=== PATIENT | male | born 1965 | race Hispanic/Latino ===

== ENCOUNTER 2024-01-06 15:19 | Emergency (ER) | payer MEDICAID, OTHER ==
[~2024-01-06] VITALS: Ht 172.7 cm; Wt 70.8 kg
[2024-01-06 16:12] LABS: BASOPHILS # (AUTO) 0.04 K/uL (0.00-0.20); BASOPHILS % (AUTO) 0.5 % (0.0-5.0); EOSINOPHILS % (AUTO) 2.5 % (0.0-8.0); HEMATOCRIT 47.4 % (42-54); IMMATURE GRANULOCYTE ABSOLUTE 0.03 K/uL (0-1); LYMPHOCYTES # (AUTO) 2.4 K/uL (1.0-4.8); LYMPHOCYTES % (AUTO) 29.1 % (21.0-51.0); MEAN CORPUSCULAR HEMOGLOBIN 29.2 pg (27.0-33.0); MEAN CORPUSCULAR VOLUME 85.9 fL (79-99); MONOCYTES # (AUTO) 0.7 K/uL (0.1-1.0); NEUTROPHILS # (AUTO) 4.8 K/uL (1.8-7.7); NEUTROPHILS % (AUTO) 59.5 % (40.0-77.0); PLATELET COUNT (AUTO) 239 K/uL (130-400); RED BLOOD CELL COUNT(AUTO) 5.52 MIL/uL (4.50-6.20); WHITE BLOOD COUNT (AUTO) 8.1 K/uL (4.8-10.8)
[2024-01-06 16:16] LABS: POTASSIUM 3.9 mmol/L (3.5-5.1)
[2024-01-06 16:20] LABS: ALBUMIN 3.7 g/dL (3.5-5.0); BILIRUBIN,TOTAL 0.7 mg/dL (0.2-1.0); TOTAL PROTEIN, SERUM 7.7 g/dL (6.0-8.3)
[2024-01-06 16:26] LABS: APPEARANCE,URINE CLEAR (CLEAR); BILIRUBIN,URINE NEGATIVE (NEGATIVE); COLOR,URINE COLORLESS (YELLOW); GLUCOSE, URINE (UA) 50 mg/dL (NEGATIVE); KETONES,URINE NEGATIVE (NEGATIVE); LEUKOCYTE ESTERASE ,URINE NEGATIVE Leu/uL (NEGATIVE); NITRATE,URINE NEGATIVE (NEGATIVE); OCCULT BLOOD,URINE NEGATIVE (NEGATIVE); PROTEIN,URINE NEGATIVE (NEGATIVE); UROBILINOGEN,URINE 0.2 mg/dL (0.2-1.0)
[2024-01-06 16:28] LABS: ADD UA MICROSCOPIC YES; RBC,URINE 0-1 /HPF (0-1); WBC,URINE 0-1 /HPF (0-1)
[2024-01-06] MEDS ORDERED: IOHEXOL 350 MG/ML 100ML INFUS..BTL IV ONE (16:52)
[2024-01-06] MEDS ORDERED: TAMS-1 PO (18:02)
[2024-01-06] MEDS: LACTATED RINGERS 1000ML 1,000 ML IV ONE (18:14)
[2024-01-06] MEDS: ONDANSETRON 4MG INJ IVP ONE (18:14)
[2024-01-06] MEDS: FAMOTIDINE 20MG VIAL IV ONE (18:14)
[2024-01-06 19:25] VITALS: BP 141/86; PULSE 77; RESP 14; O2SAT 96
[2024-01-07] MEDS ORDERED: TAMS-1 PO (00:15)
[2024-01-07] MEDS ORDERED: LEVO-70 PO (00:15)
== END 2024-01-06 19:30 | disposition home or self-care (01) ==
LOC: EDH 15:19
DX: N13.9 Obstructive and reflux uropathy, unspecified (principal); R33.9 Retention of urine, unspecified; F20.9 Schizophrenia, unspecified; F32.A Depression, unspecified; R11.2 Nausea with vomiting, unspecified; R14.0 Abdominal distension (gaseous)
CPT/HCPCS: 99285; 74177; 96374; 96361; 96375; 80053; 83690; 85025; 81001; 36415; J7120; J2405; Q9967; S0028; J3490

== ENCOUNTER 2024-01-06 21:10 | Emergency (ER) | payer MEDICAID ==
[~2024-01-06] VITALS: Ht 162.6 cm; Wt 69.9 kg
[~2024-01-06 21:10] MED LIST: TAMS-1 PO
[2024-01-06 22:41] LABS: BASOPHILS # (AUTO) 0.05 K/uL (0.00-0.20); BASOPHILS % (AUTO) 0.5 % (0.0-5.0); EOSINOPHILS # (AUTO) 0.12 K/uL (0.00-0.70); EOSINOPHILS % (AUTO) 1.1 % (0.0-8.0); HEMATOCRIT 47.8 % (42-54); IMMATURE GRANULOCYTE ABSOLUTE 0.04 K/uL (0-1); LYMPHOCYTES # (AUTO) 1.4 K/uL (1.0-4.8); LYMPHOCYTES % (AUTO) 12.6 % (21.0-51.0); MEAN CORPUSCULAR HEMOGLOBIN 29.9 pg (27.0-33.0); MEAN CORPUSCULAR HGB CONC 34.5 g/dL (32.0-36.0); MEAN CORPUSCULAR VOLUME 86.6 fL (79-99); MONOCYTES # (AUTO) 0.7 K/uL (0.1-1.0); MONOCYTES % (AUTO) 6.1 % (3.0-13.0); NEUTROPHILS # (AUTO) 8.7 K/uL (1.8-7.7); NEUTROPHILS % (AUTO) 79.3 % (40.0-77.0); PLATELET COUNT (AUTO) 225 K/uL (130-400); RED BLOOD CELL COUNT(AUTO) 5.52 MIL/uL (4.50-6.20); RED CELL DISTRIBUTION WIDTH 13.1 % (11.0-15.5)
[2024-01-06 22:49] LABS: CREATININE 1.1 mg/dL (0.5-1.3); POTASSIUM 4.1 mmol/L (3.5-5.1)
[2024-01-06 22:51] LABS: INR 0.98 (0.85-1.15); PROTHROMBIN TIME 10.6 SEC (9.6-11.6)
[2024-01-06 22:52] LABS: PARTIAL THROMBOPLASTIN TIME 27.1 SEC (26.3-35.5)
[2024-01-06 22:54] LABS: ALBUMIN 3.6 g/dL (3.5-5.0); BILIRUBIN,TOTAL 0.7 mg/dL (0.2-1.0); TOTAL PROTEIN, SERUM 7.3 g/dL (6.0-8.3)
[2024-01-06 22:57] LABS: APPEARANCE,URINE TURBID (CLEAR); BILIRUBIN,URINE NEGATIVE (NEGATIVE); COLOR,URINE DARK-BROWN (YELLOW); GLUCOSE, URINE (UA) 300 mg/dL (NEGATIVE); KETONES,URINE NEGATIVE (NEGATIVE); LEUKOCYTE ESTERASE ,URINE 25 Leu/uL (NEGATIVE); NITRATE,URINE NEGATIVE (NEGATIVE); OCCULT BLOOD,URINE LARGE (NEGATIVE); PROTEIN,URINE 300 mg/dL (NEGATIVE); UROBILINOGEN,URINE 0.2 mg/dL (0.2-1.0)
[2024-01-06 22:58] LABS: ADD UA MICROSCOPIC YES
[2024-01-06 23:00] LABS: BACTERIA,URINE FEW /HPF (None Seen); RBC,URINE TNTC /HPF (0-1)
[2024-01-06] MEDS: FUROSEMIDE 40 MG TABLET ONE (23:38)
[2024-01-06] MEDS: FUROSEMIDE 40MG VIAL ONE (23:38)
[2024-01-06] MEDS: FUROSEMIDE 40 MG TABLET PO ONE (23:39)
[2024-01-06 23:42] VITALS: BP 128/62; PULSE 68; RESP 20; O2SAT 95
[2024-01-07] MEDS ORDERED: LEVO-70 PO (00:15)
[2024-01-07] MEDS ORDERED: TAMS-1 PO (00:15)
[2024-01-07] MEDS ORDERED: LEVOFLOXACIN 500 MG TABLET PO SCH (00:30)
== END 2024-01-07 00:24 | disposition home or self-care (01) ==
LOC: EDH 21:10
DX: R39.0 Extravasation of urine (principal); N40.0 Benign prostatic hyperplasia without lower urinary tract symptoms; F20.9 Schizophrenia, unspecified; F32.A Depression, unspecified; Z96.0 Presence of urogenital implants; Z79.01 Long term (current) use of anticoagulants
CPT/HCPCS: 36415; 80053; 81001; 83605; 85025; 85610; 85730; 87040; J1940

== ENCOUNTER 2024-01-08 16:36 | Emergency (ER) | payer MEDICAID ==
[~2024-01-08] VITALS: Ht 165.1 cm; Wt 69.9 kg
[~2024-01-08 16:36] MED LIST changes: +LEVO-70 PO
[2024-01-08 19:06] LABS: APPEARANCE,URINE CLOUDY (CLEAR); BILIRUBIN,URINE NEGATIVE (NEGATIVE); COLOR,URINE RED (YELLOW); GLUCOSE, URINE (UA) NEGATIVE (NEGATIVE); KETONES,URINE NEGATIVE (NEGATIVE); LEUKOCYTE ESTERASE ,URINE 25 Leu/uL (NEGATIVE); NITRATE,URINE NEGATIVE (NEGATIVE); OCCULT BLOOD,URINE LARGE (NEGATIVE); PROTEIN,URINE 200 mg/dL (NEGATIVE); UROBILINOGEN,URINE 0.2 mg/dL (0.2-1.0)
[2024-01-08 19:10] LABS: ADD UA MICROSCOPIC YES
[2024-01-08 19:41] LABS: BASOPHILS # (AUTO) 0.04 K/uL (0.00-0.20); BASOPHILS % (AUTO) 0.4 % (0.0-5.0); EOSINOPHILS # (AUTO) 0.18 K/uL (0.00-0.70); EOSINOPHILS % (AUTO) 1.9 % (0.0-8.0); HEMATOCRIT 49.2 % (42-54); IMMATURE GRANULOCYTE ABSOLUTE 0.03 K/uL (0-1); LYMPHOCYTES # (AUTO) 1.4 K/uL (1.0-4.8); LYMPHOCYTES % (AUTO) 14.7 % (21.0-51.0); MEAN CORPUSCULAR HEMOGLOBIN 29.1 pg (27.0-33.0); MEAN CORPUSCULAR HGB CONC 34.1 g/dL (32.0-36.0); MEAN CORPUSCULAR VOLUME 85.3 fL (79-99); MONOCYTES # (AUTO) 0.8 K/uL (0.1-1.0); MONOCYTES % (AUTO) 7.9 % (3.0-13.0); NEUTROPHILS # (AUTO) 7.2 K/uL (1.8-7.7); NEUTROPHILS % (AUTO) 74.8 % (40.0-77.0); PLATELET COUNT (AUTO) 238 K/uL (130-400); RED BLOOD CELL COUNT(AUTO) 5.77 MIL/uL (4.50-6.20); RED CELL DISTRIBUTION WIDTH 13.1 % (11.0-15.5); WHITE BLOOD COUNT (AUTO) 9.6 K/uL (4.8-10.8)
[2024-01-08 19:58] LABS: BACTERIA,URINE RARE /HPF (None Seen); MUCUS,URINE RARE LPF (None Seen); OTHER CASTS, URINE 21 /LPF (None Seen); RBC,URINE TNTC /HPF (0-1); UNCLASSIFIED CRYSTAL 12 /HPF (None Seen)
[2024-01-08 20:35] VITALS: BP 135/59; PULSE 81; RESP 20; O2SAT 98
== END 2024-01-08 20:44 | disposition home or self-care (01) ==
LOC: EDH 16:36
DX: R31.9 Hematuria, unspecified (principal); E11.9 Type 2 diabetes mellitus without complications; E78.00 Pure hypercholesterolemia, unspecified; F20.9 Schizophrenia, unspecified; Z79.899 Other long term (current) drug therapy; Z98.890 Other specified postprocedural states
CPT/HCPCS: 36415; 51702; 81001; 85025

== ENCOUNTER 2024-01-20 22:02 | Inpatient (IN) | payer MEDICAID ==
[~2024-01-20] VITALS: Ht 165.1 cm; Wt 67.4 kg
[2024-01-20 23:02] LABS: BASOPHILS # (AUTO) 0.02 K/uL (0.00-0.20); BASOPHILS % (AUTO) 0.2 % (0.0-5.0); EOSINOPHILS # (AUTO) 0.08 K/uL (0.00-0.70); EOSINOPHILS % (AUTO) 0.9 % (0.0-8.0); HEMATOCRIT 43.1 % (42-54); IMMATURE GRANULOCYTE ABSOLUTE 0.04 K/uL (0-1); LYMPHOCYTES % (AUTO) 10.9 % (21.0-51.0); MEAN CORPUSCULAR HEMOGLOBIN 28.9 pg (27.0-33.0); MEAN CORPUSCULAR HGB CONC 33.2 g/dL (32.0-36.0); MEAN CORPUSCULAR VOLUME 87.2 fL (79-99); MONOCYTES # (AUTO) 0.3 K/uL (0.1-1.0); MONOCYTES % (AUTO) 3.7 % (3.0-13.0); NEUTROPHILS # (AUTO) 7.5 K/uL (1.8-7.7); NEUTROPHILS % (AUTO) 83.9 % (40.0-77.0); PLATELET COUNT (AUTO) 286 K/uL (130-400); RED BLOOD CELL COUNT(AUTO) 4.94 MIL/uL (4.50-6.20); RED CELL DISTRIBUTION WIDTH 13.2 % (11.0-15.5); WHITE BLOOD COUNT (AUTO) 8.9 K/uL (4.8-10.8)
[2024-01-20 23:19] LABS: CREATININE 1.2 mg/dL (0.5-1.3); POTASSIUM 4.1 mmol/L (3.5-5.1)
[2024-01-20 23:24] LABS: ALBUMIN 3.2 g/dL (3.5-5.0); BILIRUBIN,TOTAL 0.4 mg/dL (0.2-1.0); TOTAL PROTEIN, SERUM 6.6 g/dL (6.0-8.3)
[2024-01-20] MEDS ORDERED: IOHEXOL-350 75 ML VIAL IV ONE (23:32)
[2024-01-21 01:45] LABS: APPEARANCE,URINE CLEAR (CLEAR); BILIRUBIN,URINE NEGATIVE (NEGATIVE); COLOR,URINE LIGHT-YELLOW (YELLOW); GLUCOSE, URINE (UA) 50 mg/dL (NEGATIVE); KETONES,URINE NEGATIVE (NEGATIVE); LEUKOCYTE ESTERASE ,URINE NEGATIVE Leu/uL (NEGATIVE); MUCUS,URINE RARE LPF (None Seen); NITRATE,URINE NEGATIVE (NEGATIVE); PH,URINE 5.5 (5.0-8.0); PROTEIN,URINE 20 mg/dL (NEGATIVE); RBC,URINE 0-1 /HPF (0-1); UROBILINOGEN,URINE 0.2 mg/dL (0.2-1.0); WBC,URINE 0-1 /HPF (0-1)
[2024-01-21] MEDS ORDERED: ATOR20TA65 PO (02:51)
[2024-01-21] MEDS ORDERED: PARO40TA72 PO (02:51)
[2024-01-21] MEDS ORDERED: TAMS-1 PO (02:51)
[2024-01-21] MEDS ORDERED: ACET-2743 PO (02:51)
[2024-01-21] MEDS ORDERED: RISP4TAB63 PO (02:51)
[2024-01-21] MEDS ORDERED: BENZ2TAB71 PO (02:51)
[2024-01-21] MEDS ORDERED: METF-444 PO (02:51)
[2024-01-21] MEDS ORDERED: MAGNESIUM 2GM PREMIX 50ML 50 ML IV PRN (03:00)
[2024-01-21] MEDS ORDERED: MORPHINE 2 MG SYG IV PRN (03:00)
[2024-01-21] MEDS ORDERED: DEXTROSE 50%-WATER 50 ML DISP.SYRIN IV PRN (03:00)
[2024-01-21] MEDS ORDERED: POTASSIUM CHLORIDE 20MEQ/100ML 100 ML IV PRN (03:00)
[2024-01-21] MEDS ORDERED: GLUCAGON 1MG KIT 1 MG ML IM PRN (03:00)
[2024-01-21] MEDS: 0.9%NACL 1000ML 1,000 ML IV SCH (03:49)
[2024-01-21 04:20] VITALS: BP 127/81; PULSE 95; RESP 18
[2024-01-21] MEDS: ONDANSETRON 4MG INJ IV PRN (04:46)
[2024-01-21 06:33] LABS: BASOPHILS # (AUTO) 0.04 K/uL (0.00-0.20); BASOPHILS % (AUTO) 0.3 % (0.0-5.0); EOSINOPHILS # (AUTO) 0.04 K/uL (0.00-0.70); EOSINOPHILS % (AUTO) 0.3 % (0.0-8.0); HEMATOCRIT 46.8 % (42-54); IMMATURE GRANULOCYTE ABSOLUTE 0.07 K/uL (0-1); LYMPHOCYTES # (AUTO) 1.7 K/uL (1.0-4.8); MEAN CORPUSCULAR HEMOGLOBIN 29.2 pg (27.0-33.0); MEAN CORPUSCULAR HGB CONC 33.5 g/dL (32.0-36.0); MEAN CORPUSCULAR VOLUME 87.2 fL (79-99); MONOCYTES # (AUTO) 0.7 K/uL (0.1-1.0); MONOCYTES % (AUTO) 5.8 % (3.0-13.0); NEUTROPHILS # (AUTO) 9.4 K/uL (1.8-7.7); PLATELET COUNT (AUTO) 318 K/uL (130-400); RED BLOOD CELL COUNT(AUTO) 5.37 MIL/uL (4.50-6.20); WHITE BLOOD COUNT (AUTO) 11.9 K/uL (4.8-10.8)
[2024-01-21 06:56] LABS: ALBUMIN 3.2 g/dL (3.5-5.0); BILIRUBIN,TOTAL 0.5 mg/dL (0.2-1.0); POTASSIUM 4.5 mmol/L (3.5-5.1); TOTAL PROTEIN, SERUM 6.9 g/dL (6.0-8.3)
[2024-01-21] MEDS: INSULIN HUMULIN R 100 UNIT/ML 3ML SQ SCH (07:30)
[2024-01-21 08:00] VITALS: BP 123/79; PULSE 69; RESP 14
[2024-01-21] MEDS: FAMOTIDINE 20MG VIAL IV SCH (08:31)
[2024-01-21 11:49] VITALS: BP 142/78; PULSE 83; RESP 14
[2024-01-21] MEDS ORDERED: ACETAMINOPHEN 500 MG TABLET PO PRN (13:30)
[2024-01-21] MEDS: METFORMIN HCL 500 MG TABLET PO SCH (13:59)
[2024-01-21] MEDS: RISPERIDONE 1 MG TABLET PO SCH (14:19)
[2024-01-21] MEDS: TAMSULOSIN HCL 0.4 MG CAP.ER.24H PO SCH (14:19)
[2024-01-21] MEDS: ATORVASTATIN 20 MG TABLET PO SCH (14:19)
[2024-01-21] MEDS: PAROXETINE HCL 20 MG TABLET PO SCH (14:20)
[2024-01-21] MEDS: BENZTROPINE 0.5MG TAB PO SCH (14:40)
[2024-01-21 16:00] VITALS: BP 122/78; PULSE 89; RESP 14
[2024-01-21 20:00] VITALS: BP 123/73; PULSE 86; RESP 20
[2024-01-22] VITALS: BP 122/70; PULSE 70; RESP 20
[2024-01-22 04:00] VITALS: BP 142/83; PULSE 83; RESP 20
[2024-01-22 05:38] LABS: BASOPHILS # (AUTO) 0.02 K/uL (0.00-0.20); BASOPHILS % (AUTO) 0.2 % (0.0-5.0); EOSINOPHILS # (AUTO) 0.15 K/uL (0.00-0.70); EOSINOPHILS % (AUTO) 1.6 % (0.0-8.0); HEMATOCRIT 40.4 % (42-54); IMMATURE GRANULOCYTE ABSOLUTE 0.04 K/uL (0-1); LYMPHOCYTES % (AUTO) 22.1 % (21.0-51.0); MEAN CORPUSCULAR HEMOGLOBIN 28.8 pg (27.0-33.0); MEAN CORPUSCULAR HGB CONC 33.2 g/dL (32.0-36.0); MEAN CORPUSCULAR VOLUME 86.9 fL (79-99); MONOCYTES # (AUTO) 0.8 K/uL (0.1-1.0); MONOCYTES % (AUTO) 8.8 % (3.0-13.0); NEUTROPHILS # (AUTO) 6.2 K/uL (1.8-7.7); NEUTROPHILS % (AUTO) 66.9 % (40.0-77.0); PLATELET COUNT (AUTO) 316 K/uL (130-400); RED BLOOD CELL COUNT(AUTO) 4.65 MIL/uL (4.50-6.20); RED CELL DISTRIBUTION WIDTH 13.1 % (11.0-15.5); WHITE BLOOD COUNT (AUTO) 9.3 K/uL (4.8-10.8)
[2024-01-22 05:54] LABS: POTASSIUM 4.1 mmol/L (3.5-5.1)
[2024-01-22 08:00] VITALS: BP 122/86; PULSE 77; RESP 14
[2024-01-22] MEDS ORDERED: RISPERIDONE 4 MG PO SCH (09:00)
[2024-01-22] MEDS ORDERED: BENZTROPINE MESYLATE 2 MG PO SCH (09:00)
[2024-01-22] MEDS ORDERED: PAROXETINE HCL 40 MG PO SCH (09:00)
[2024-01-22 16:00] VITALS: BP 134/75; PULSE 70; RESP 14
[2024-01-22 19:00] VITALS: BP 114/60; PULSE 72; RESP 16
[2024-01-22 23:00] VITALS: BP 133/79; PULSE 72; RESP 16
[2024-01-23] VITALS: BP 124/66; PULSE 60; RESP 20
[2024-01-23 03:00] VITALS: BP 125/78; PULSE 74; RESP 16
[2024-01-23 08:00] VITALS: BP 135/82; PULSE 67; RESP 14
[2024-01-23 11:31] LABS: BASOPHILS # (AUTO) 0.03 K/uL (0.00-0.20); BASOPHILS % (AUTO) 0.4 % (0.0-5.0); EOSINOPHILS # (AUTO) 0.18 K/uL (0.00-0.70); EOSINOPHILS % (AUTO) 2.3 % (0.0-8.0); HEMATOCRIT 41.1 % (42-54); IMMATURE GRANULOCYTE ABSOLUTE 0.03 K/uL (0-1); LYMPHOCYTES # (AUTO) 1.8 K/uL (1.0-4.8); LYMPHOCYTES % (AUTO) 22.8 % (21.0-51.0); MEAN CORPUSCULAR HGB CONC 33.3 g/dL (32.0-36.0); MEAN CORPUSCULAR VOLUME 87.1 fL (79-99); MONOCYTES # (AUTO) 0.8 K/uL (0.1-1.0); MONOCYTES % (AUTO) 9.9 % (3.0-13.0); NEUTROPHILS # (AUTO) 4.9 K/uL (1.8-7.7); NEUTROPHILS % (AUTO) 64.2 % (40.0-77.0); PLATELET COUNT (AUTO) 283 K/uL (130-400); RED BLOOD CELL COUNT(AUTO) 4.72 MIL/uL (4.50-6.20); RED CELL DISTRIBUTION WIDTH 12.7 % (11.0-15.5); WHITE BLOOD COUNT (AUTO) 7.7 K/uL (4.8-10.8)
[2024-01-23 11:42] LABS: CREATININE 1.1 mg/dL (0.5-1.3); POTASSIUM 4.1 mmol/L (3.5-5.1)
[2024-01-23 12:00] VITALS: BP 133/79; PULSE 65; RESP 14
[2024-01-23 16:00] VITALS: BP 134/75; PULSE 70; RESP 14
[2024-01-23] MEDS: LACTULOSE 20 GM/30 ML UDCUP PO PRN (16:39)
[2024-01-23 20:00] VITALS: BP 124/66; PULSE 60; RESP 20
[2024-01-24] VITALS (7 sets, daily range): BP systolic 99–137; BP diastolic 57–84; PULSE 57–83; RESP 17–20; O2SAT 92
[2024-01-24] MEDS ORDERED: BISACODYL 10 MG SUPP.RECT RC PRN (12:00)
[2024-01-24] MEDS: BISACODYL 10 MG SUPP.RECT RC ONE (19:29)
[2024-01-25] VITALS: BP 99/66; PULSE 74; RESP 18
[2024-01-25 04:15] VITALS: BP 119/80; PULSE 70; RESP 17
[2024-01-25 07:15] VITALS: BP 95/65; PULSE 85; RESP 18
[2024-01-25 11:15] VITALS: BP 102/70; PULSE 79; RESP 18
[2024-01-25] MEDS ORDERED: LACT PO (11:17)
== END 2024-01-25 16:00 | disposition home or self-care (01) | DRG 247 ==
LOC: EDH 22:02 → EDHIP 22:03 → 4AH 01-21 04:13
PROVIDERS: ADMIT Hospitalist; ATTEND Hospitalist
DX: K56.699 Other intestinal obstruction unspecified as to partial versus complete obstruction (principal); E11.9 Type 2 diabetes mellitus without complications; E78.5 Hyperlipidemia, unspecified; R33.9 Retention of urine, unspecified; F20.9 Schizophrenia, unspecified; F32.A Depression, unspecified; I10 Essential (primary) hypertension; N40.1 Benign prostatic hyperplasia with lower urinary tract symptoms; K59.00 Constipation, unspecified
CPT/HCPCS: 36415; 74018; 74177; 80048; 80053; 81001; 82948; 83690; 85025; 99291; G0378; J2405; J3490; J7030; Q9967

== ENCOUNTER 2025-06-02 15:12 | Emergency (ER) | payer MEDICAID ==
[~2025-06-02] VITALS: Ht 167.6 cm; Wt 71.7 kg
[~2025-06-02 15:12] MED LIST changes: +ACET-2743 PO; +ATOR20TA65 PO; +BENZ2TAB71 PO; +LACT PO; -LEVO-70 PO; +METF-444 PO; +PARO40TA72 PO; +RISP4TAB63 PO; -TAMS-1 PO; +TAMS-55 PO
[2025-06-02 15:13] VITALS: TEMP 97.8
[2025-06-02 15:57] LABS: IMMATURE GRANULOCYTE ABSOLUTE 0.04 K/uL (0-1); NUCLEATED RED BLOOD CELLS 0.0 % (0.0-0.19); PLATELET COUNT (AUTO) 211 K/uL (130-400); RED BLOOD CELL COUNT(AUTO) 5.73 MIL/uL (4.50-6.20); RED CELL DISTRIBUTION WIDTH 13.2 % (11.0-15.5); WHITE BLOOD COUNT (AUTO) 8.6 K/uL (4.8-10.8)
[2025-06-02 16:04] LABS: CREATININE 1.1 mg/dL (0.5-1.3); GLOMERULAR FILTR. RATE CALC 77.0 mL/min (>90); GLUCOSE,RANDOM 182.0 mg/dL (70-105); SODIUM SERUM 133.0 mmol/L (136-145); UREA NITROGEN, BLOOD 9.0 mg/dL (7-18)
[2025-06-02 16:09] LABS: CREATINE KINASE, TOTAL 130.0 U/L (21-232)
[2025-06-02] MEDS: 0.9%NACL 1000ML 1,000 ML IV ONE (16:15)
--- NOTE | 2025-06-02 16:40 | NUR ---
pt reported he needed to urinate, bladder scanner of 798 ml prior to voiding
--- NOTE | 2025-06-02 16:53 | NUR ---
pt voided , container post void was a total of 700 cc however post bladder scanner indicated pt had 527 cc of urine , advise pt and that will place sauceda cather no concerns voiced
[2025-06-02 16:57] LABS: APPEARANCE,URINE CLEAR (CLEAR); GLUCOSE, URINE (UA) 300 mg/dL (NEGATIVE); LEUKOCYTE ESTERASE ,URINE NEGATIVE Leu/uL (NEGATIVE); NITRATE,URINE NEGATIVE (NEGATIVE); OCCULT BLOOD,URINE NEGATIVE (NEGATIVE)
[2025-06-02 16:58] LABS: ADD UA MICROSCOPIC YES
[2025-06-02 17:03] LABS: AMPHET/METH SCREEN,URINE NEGATIVE (NEGATIVE); BARBITURATE SCREEN, URINE NEGATIVE (NEGATIVE); CANNABINOID SCREEN,URINE NEGATIVE (NEGATIVE); COCAINE SCREEN,URINE NEGATIVE (NEGATIVE)
--- NOTE | 2025-06-02 17:03 | HMCIMG ---
EXAM: CR Chest, 1 View. CLINICAL HISTORY: dizzy COMPARISON: None provided. FINDINGS: LUNGS: The lungs show no infiltrate or other acute finding. PLEURAL SPACES: No pleural effusion or pneumothorax. MEDIASTINUM: Cardiac size and mediastinal contours within normal limits. BONES: No acute osseous abnormality. IMPRESSION: No acute cardiopulmonary pathology is evident. /[place]
--- NOTE | 2025-06-02 17:08 | EKG ---
[facility] Test Date: 2025-06-02 Test Time: 17:02:18 Pat Name: SYLVIE FIELDS Department: ED Room: Gender: Project Executive: [id number] : 1965 Requested By: AFSANEH PANG Order Number: [id number] Reading MD: Justin Cormier Measurements Intervals [place] Rate: 83 P: 60 RI: 160 QRS: 23 QRSD: 77 T: 33 QT: 352 QTc: 414 Interpretive Statements Sinus rhythm No previous ECG available for comparison Electronically Signed On 06-03-2025 21:50:08 FIELD SUPERINTENDENT by Justin Cormier Please click the below link to view image of tracing.
--- NOTE | 2025-06-02 17:20 | HMCIMG ---
EXAM: CT Head Without IV contrast. CLINICAL HISTORY: dizzy TECHNIQUE: Axial computed tomography images of the head/brain without intravenous contrast. COMPARISON: None provided. FINDINGS: BRAIN: No evidence of acute hemorrhage. No mass lesion. No CT evidence for acute territorial infarct. No midline shift or extra-axial collections. VENTRICLES: No hydrocephalus. ORBITS: The orbits are unremarkable. SINUSES AND MASTOIDS: The paranasal sinuses and mastoid air cells are clear. BONES: No fracture. SOFT TISSUES: Unremarkable. IMPRESSION: No acute intracranial abnormality. /[place]
--- NOTE | 2025-06-02 18:02 | ERN ---
ED Note History of Present Illness Stated Complaint: URINE RETENTION Chief Complaint: Multiple Complaints Time Seen by MD: 15:17 Time Seen by Midlevel: 15:17 Dictation: The patient is a 59-year-old male with a history of diabetes, hypertension, hyperlipidemia, schizophrenia, BPH who self caths 4 times a day who presents to the emergency department with family member for multiple complaints. Patient reported some dizziness onset this morning associated with nausea and headache. Denies any vomiting, denies any fevers, denies any falls or head trauma. Per patient's history patient also has urinary retention but reports he is supposed to cap 4 times a day but patient is noncompliant. Reports he has been treated for a UTI. Allergies: Coded Allergies: No Known Drug Allergies (Unverified Allergy, Unknown, 01/06/24) Home Meds Active Scripts Lactulose (Cephulac/Enulose Soln) 20 Gram/30 Ml Soln, 20 GM PO BID PRN for CONSTIPATION, #1 BOT 0 Refills Prov:GINGER HOLLAND AGACNP 01/25/24 Reported Medications Atorvastatin Calcium (Atorvastatin Calcium) 20 Mg Tablet, 20 MG PO DAILY, TAB 01/21/24 Metformin HCl (Metformin HCl) 500 Mg Tablet, 500 MG PO DAILY, TAB 01/21/24 Tamsulosin HCl (Flomax) 0.4 Mg Cap.er.24h, 0.4 MG PO DAILY, CAPSULE.DR 01/21/24 Acetaminophen (Tylenol Extra Strength) 500 Mg Tablet, 1000 MG PO TIDP PRN for PAIN LEVEL 1 TO 5, TAB 01/21/24 Benztropine Mesylate (Benztropine Mesylate) 2 Mg Tablet, 2 MG PO DAILY, TAB 01/21/24 Paroxetine HCl (Paroxetine HCl) 40 Mg Tablet, 40 MG PO DAILY, TAB 01/21/24 Risperidone (Risperdal) 4 Mg Tablet, 4 MG PO DAILY, TAB 01/21/24 Past Medical History Past Medical History: Diabetes-Type II, Hypertension, Schizophrenia Additional Past Medical Hx: BPH Surgical History: Other Surgical History Other: HERNIA REPAIR Family History: Negative Social History: Negative RN Note Reviewed/Agreed w/PFSH: Yes Review of System Dictation Constitutional: Negative for fever,chills, and weight loss Eyes: Negative for injury, pain,redness, and discharge ENT: Negative for injury,pain or swelling Cardiovascular: Negative for chest pain, palpitations, and edema Respiratory: Negative for shortness of breath, cough, and wheezing, Abdomen/GI: Negative for abdominal pain, vomiting, diarrhea, and constipation positive for nausea Back: Negative for injury and pain : Negative for injury, bleeding and discharge positive for urinary retention MS/Extremity: Negative for injury and deformity Skin: Negative for rash, and discoloration Neuro: Negative for , weakness, numbness, tingling, and seizure positive for headache, dizziness Psych: Negative for suicide ideation, homicidal ideation, and hallucinations Initial Vital Sign VS Vital Signs Date Time Temp Pulse Resp B/P (MAP) Pulse Ox O2 Delivery O2 Flow Rate FiO2 06/02/25 15:13 97.9 96 20 127/74 99 Physical Exam Dictation Vital Signs reviewed General Appearance: Alert, oriented x 3, no acute distress, well developed, nourished. Head and Face: non-traumatic. Eyes: PERRL, pink conjunctivas, eyelid no trauma, anterior chamber with arcus senilis. Ears: Pinnas intact and no signs of trauma or erythema ear canals clear and no discharge TM no erythema Nose: No discharge, no bleeding. Oropharynx: Mouth normal, tongue pink. pharynx clear,no erythema, tonsils no exudates, no abscesses noted, mucous membrane moist Neck: Supple, non-tender, no thyromegaly, no masses, no JVD, no bruits Breast:Deferred Chest:No tenderness, no crepitus, no paradoxical movement, no retractions Lungs:Clear, well-ventilated, symmetric, no rales, no wheezing, no rhonchi, no stridor, good breath sounds bilaterally Heart: Regular rate, regular rhythm, no murmur, no gallops Vascular: no peripheral edema, Abdomen: Soft, positive bowel sounds, nondistended, no guarding, nontender, no rebound, no masses no hepatomegaly, no splenomegaly, no Carter's sign, no hernias. Rectal: Deferred Genital: Deferred Neurological: Normal speech, motor function intact, sensory function intact , upper extremities equal in strength, lower extremities equal in strength, no facial droop, no slurred speech Musculoskeletal: Neck nontender, full range of motion, back nontender, full range of motion, Extremities: nontender, full range of motion Skin: Color pink, dry, no turgor, no rash, no lacerations, no abrasions, no contusions. Lymphatic: Deferred Results (Laboratory/Radiology) Laboratory/Radiology Laboratory Tests Test 06/02/25 15:50 06/02/25 16:48 White Blood Count 8.6 K/uL (4.8-10.8) Red Blood Count 5.73 MIL/uL (4.50-6.20) Hemoglobin 16.7 g/dL (14.0-18.0) Hematocrit 48.5 % (42-54) Mean Corpuscular Volume 84.6 fL (79-99) Mean Corpuscular Hemoglobin 29.1 pg (27.0-33.0) Mean Corpuscular Hemoglobin Concent 34.4 g/dL (32.0-36.0) Red Cell Distribution Width 13.2 % (11.0-15.5) Platelet Count 211 K/uL (130-400) Mean Platelet Volume 9.2 fL (7.5-10.5) Immature Granulocyte % (Auto) 0.5 % (0-1) Neutrophils (%) (Auto) 71.9 % (40.0-77.0) Lymphocytes (%) (Auto) 18.9 % (21.0-51.0) L Monocytes (%) (Auto) 6.8 % (3.0-13.0) Eosinophils (%) (Auto) 1.4 % (0.0-8.0) Basophils (%) (Auto) 0.5 % (0.0-5.0) Neutrophils # (Auto) 6.2 K/uL (1.8-7.7) Lymphocytes # (Auto) 1.6 K/uL (1.0-4.8) Monocytes # (Auto) 0.6 K/uL (0.1-1.0) Eosinophils # (Auto) 0.12 K/uL (0.00-0.70) Basophils # (Auto) 0.04 K/uL (0.00-0.20) Absolute Immature Granulocyte (auto 0.04 K/uL (0-1) Nucleated Red Blood Cells 0.0 % (0.0-0.19) Sodium Level 133 mmol/L (136-145) L Potassium Level 3.8 mmol/L (3.5-5.1) Chloride Level 101 mmol/L (101-111) Carbon Dioxide Level 27 mmol/L (21-32) Blood Urea Nitrogen 9 mg/dL (7-18) Creatinine 1.1 mg/dL (0.5-1.3) Glomerular Filtration Rate Calc 77 mL/min (>90) Random Glucose 182 mg/dL (70-105) H Total Calcium 8.4 mg/dL (8.5-10.1) L Magnesium Level 2.00 mg/dL (1.80-2.40) Total Creatine Kinase 130 U/L (21-232) Troponin I High Sensitivity 4 ng/L (4-75) Urine Color LIGHT-YELLOW (YELLOW) Urine Appearance CLEAR (CLEAR) Urine pH 5.0 (5.0-8.0) Urine Specific [place] 1.005 (1.001-1.031) Urine Protein NEGATIVE mg/dL (NEGATIVE) Urine Glucose (UA) 300 mg/dL (NEGATIVE) H Urine Ketones NEGATIVE mg/dL (NEGATIVE) Urine Occult Blood NEGATIVE (NEGATIVE) Urine Nitrate NEGATIVE (NEGATIVE) Urine Bilirubin NEGATIVE mg/dL (NEGATIVE) Urine Urobilinogen 0.2 mg/dL (0.2-1.0) Urine Leukocyte Esterase NEGATIVE Jasmin/uL Urine RBC 0-1 /HPF (0-1) Urine WBC 0-1 /HPF (0-1) Urine Bacteria None /HPF (None Seen) Urine Opiates Screen NEGATIVE (NEGATIVE) Urine Barbiturates Screen NEGATIVE (NEGATIVE) Urine Phencyclidine Screen NEGATIVE (NEGATIVE) Urine Amphetamines Screen NEGATIVE (NEGATIVE) Urine Benzodiazepines Screen NEGATIVE (NEGATIVE) Urine Cocaine Screen NEGATIVE (NEGATIVE) Urine Marijuana (THC) Screen NEGATIVE (NEGATIVE) REASON: dizzy ORDERING PHYSICIAN: AFSANEH PANG PROCEDURE: HEAD WO - CT HEAD/BRAIN W/O CONTRAST EXAM: CT Head Without IV contrast. CLINICAL HISTORY: dizzy TECHNIQUE: Axial computed tomography images of the head/brain without intravenous contrast. COMPARISON: None provided. FINDINGS: BRAIN: No evidence of acute hemorrhage. No mass lesion. No CT evidence for acute territorial infarct. No midline shift or extra-axial collections. VENTRICLES: No hydrocephalus. ORBITS: The orbits are unremarkable. SINUSES AND MASTOIDS: The paranasal sinuses and mastoid air cells are clear. BONES: No fracture. SOFT TISSUES: Unremarkable. IMPRESSION: No acute intracranial abnormality. /[place] REASON: dizzy ORDERING PHYSICIAN: AFSANEH PANG PRIMER INSPECTOR PROCEDURE: CXR1VW - CHEST 1VW EXAM: CR Chest, 1 View. CLINICAL HISTORY: dizzy COMPARISON: None provided. FINDINGS: LUNGS: The lungs show no infiltrate or other acute finding. PLEURAL SPACES: No pleural effusion or pneumothorax. MEDIASTINUM: Cardiac size and mediastinal contours within normal limits. BONES: No acute osseous abnormality. IMPRESSION: No acute cardiopulmonary pathology is evident. /[place] Labs Reviewed?: Yes EKG: (+) rhythm (Sinus rhythm) EKG Comment: Date:06/02/2025 Time:1702 Ventricular rate:83 VA interval:160 QRS duration:77 QT/QTc:352/414 EKG interpretation: Sinus rhythm Reviewed by ED Attending no STEMI ED Course ED Course Orders Procedure Category Date Status Time Cbc With Differential LAB 06/02/25 Complete 15:33 Chest 1vw RAD 06/02/25 Resulted 15:33 12 Lead Ekg Tracing- EKG 06/02/25 Complete Technical 15:33 0.9%Nacl 1000ml (Ns PHA 06/02/25 Complete 1000ml) 16:00 Magnesium LAB 06/02/25 Complete 15:33 Creatine Kinase, Total LAB 06/02/25 Complete 15:33 Troponin I High LAB 06/02/25 Complete Sensitivity 15:33 Urinalysis Profile LAB 06/02/25 Complete 15:33 Basic Metabolic Panel LAB 06/02/25 Complete 15:33 Drug Screen Urine LAB 06/02/25 Complete 15:33 Ct Head/Brain W/O CT 06/02/25 Resulted Contrast 15:33 Nurse Driven Ortega ISAI 06/02/25 In Process Removal Pro 15:33 Meclizine Hcl 25 Mg PHA 06/02/25 Complete (Antivert 25 Mg) 16:00 Current Medications Medications (Trade) Dose Ordered Sig/Leif Route PRN Reason Start Time Stop Time Status Last Admin Dose Admin Meclizine HCl (ANTIvert 25 mg) 25 mg ONCE ONCE PO 06/02/25 16:00 06/02/25 16:01 DC 06/02/25 16:15 Sodium Chloride 1,000 ml @ 0 mls/hr ONCE ONCE IV 06/02/25 16:00 06/02/25 16:01 DC 06/02/25 16:15 Vital Signs Date Time Temp Pulse Resp B/P (MAP) Pulse Ox O2 Delivery O2 Flow Rate FiO2 06/02/25 15:13 97.9 96 20 127/74 99 Medical Decision Making MDM The patient is a 59-year-old male with a history of diabetes, hypertension, hyperlipidemia, schizophrenia, BPH who self caths 4 times a day who presents to the emergency department with family member for multiple complaints. Patient reported some dizziness onset this morning associated with nausea and headache. Denies any vomiting, denies any fevers, denies any falls or head trauma. Per patient's history patient also has urinary retention but reports he is supposed to cap 4 times a day but patient is noncompliant. Reports he has been treated for a UTI. CBC showed no leukocytosis, no anemia chemistry showed GFR of 77, mild hyponatremia, negative troponin, urinalysis is unremarkable, urine drug strike negative. On physical exam patient has cerumen impaction bilaterally. Patient instructed to use [id number] cerumen softeners and follow up with PCP. CT head showed no acute pathology. Patient was having urinary retention and refused to have catheter in place. Agreed for in and out. Patient otherwise in no acute distress, stable vital signs, ambulatory, neurologically intact. Patient will be discharged to follow up with PCP. Differential diagnosis: Urinary retention, UTI, sepsis, intracerebral hemorrhage, dehydration Need for hospitalization: Patient does not meet criteria for hospitalization. There are no social concerns with this patient. DX & DISP Disposition: Discharge Departure Impression: Primary Impression: Urinary retention Additional Impressions: Headache, Dizziness, Impacted cerumen of both ears Condition: Stable Additional Instructions: Your labs were unremarkable. Your CT scan was unremarkable. Please follow up with your primary doctor in 1-2 days. Continue with the your self- catheterizations at home. If anything changes please return to ER. FOLLOW-UP WITH PRIMARY CARE PROVIDER IN 1 TO 2 DAYS. TAKE MEDICATIONS DIRECTED HERE IN THE EMERGENCY ROOM. OKAY TO CONTINUE HOME MEDICATIONS UNLESS OTHERWISE DISCUSSED DURING YOUR VISIT IN THE EMERGENCY ROOM TODAY. RETURN TO YOUR NEAREST EMERGENCY ROOM IF SYMPTOMS WORSEN OR IF THERE IS NO IMPROVEMENT. CALL 911 IF YOU NEED IMMEDIATE ASSISTANCE. TAKE TYLENOL [id number] NEEDED AND IF NO CONTRAINDICATIONS ARE PRESENT. INCREASE ORAL HYDRATION. A WOUND CULTURE OR URINE CULTURE WAS ORDERED HERE IN THE EMERGENCY ROOM DEPARTMENT PLEASE FOLLOW-UP WITH PRIMARY CARE PROVIDER AND ADVISE THEM TO GET REPEAT PORTS FROM OUR FACILITY. IF YOU HAD ANY RUCHI WRAP/SPLINTS THAT WERE APPLIED HERE, PLEASE DO NOT REMOVE THEM UNTIL YOU SEE YOUR PRIMARY CARE OR SPECIALTY. Referrals: BIA QUIROZ MD (PCP) Time of Disposition: 18:01 I have reviewed the case, and I agree with, Diagnosis and Plan AFSANEH PANG PRIMER INSPECTOR Jun 02, 2025 18:02
[2025-06-02 18:39] VITALS: BP 123/90; PULSE 70; RESP 17; O2SAT 98
--- NOTE | 2025-06-02 18:45 | NUR ---
LATE ENTRY - STRAIGHT CATHER DONE REMOVED A TOTAL OF 700CC OF URINE
== END 2025-06-02 18:47 | disposition home or self-care (01) ==
LOC: EDH 15:12
DX: R33.9 Retention of urine, unspecified (principal); R42 Dizziness and giddiness; R51.9 Headache, unspecified; H61.23 Impacted cerumen, bilateral; E11.9 Type 2 diabetes mellitus without complications; I10 Essential (primary) hypertension; F20.9 Schizophrenia, unspecified; Z79.84 Long term (current) use of oral hypoglycemic drugs; Z79.899 Other long term (current) drug therapy; Z98.890 Other specified postprocedural states
CPT/HCPCS: 99285; 96360; 70450; 71045; 51798; 82550; 83735; 84484; 80048; 80305; 85025; 81001; 36415; 51701; 93005; J7030